=== PATIENT | male | born 1970 | race Two or more races ===

== ENCOUNTER 2018-09-29 10:25 | Observation (INO) | payer MEDICAID ==
[~2018-09-29] VITALS: Ht 157.5 cm; Wt 54.5 kg
[2018-09-29 11:00] LABS: BASOPHILS 0.1 % (0-2); EOSINOPHILS 0.3 % (0-7); HEMATOCRIT 44.6 % (42.0-54.0); HEMOGLOBIN 15.1 g/dL (13.5-17.5); IMMATURE GRANULOCYTES 0.6 % (0-5); MCH 31.1 pg (26.0-34.0); MCHC 33.9 g/dL (31.0-37.0); MCV 91.8 fL (80.0-100.0); MONOCYTES 4.2 % (2-11); NEUTROPHILS 83.8 % (40-80); PLATELET COUNT 258 10x3/uL (130-400); RBC 4.86 10x6/uL (4.20-6.10); RDW 12.6 % (11.5-14.5); WBC 15.5 10x3/uL (4.8-10.8)
[2018-09-29 11:07] LABS: APPEARANCE CLEAR (CLEAR); BACTERIA FEW /hpf (NONE SEEN); BILIRUBIN NEGATIVE (NEGATIVE); COLOR YELLOW (YELLOW); EPITHELIAL CELLS RARE /hpf (0-5); GLUCOSE 50 mg/dL (NEGATIVE); KETONE NEGATIVE (NEGATIVE); NITRITE NEGATIVE (NEGATIVE); PROTEIN NEGATIVE (NEGATIVE); UROBILINOGEN NORMAL (NORMAL); WHITE CELLS - URINE OCC /hpf (0-5)
--- NOTE | 2018-09-29 11:14 | NUR ---
PT OUT OF THE ED AT THIS TIME, TRANSPORTED TO MEDICAL IMAGING VIA STRETCHER.
[2018-09-29 12:30] LABS: ALBUMIN 4.3 g/dL (3.4-5.0); ANION GAP 13.9 mmol/L (8-16); BILIRUBIN - TOTAL 0.34 mg/dL (0.2-1.3); CALCIUM 9.2 mg/dL (8.5-10.1); CARBON DIOXIDE 26.2 mmol/L (21.0-32.0); CREATININE - SERUM 1.2 mg/dL (0.6-1.3); POTASSIUM - SERUM 4.1 mmol/L (3.5-5.1); PROTEIN - SERUM 8.3 g/dL (6.4-8.2)
--- NOTE | 2018-09-29 12:30 | NUR ---
PT OBSERVED LYING IN BED, RESPIRATIONS EVEN AND UNLABORED. NO APPARENT SIGNS OF DISTRESS. PT ALERT, ORIENTED, RATES PAIN 1/10. FAMILY MEMBER AT THE BEDSIDE, CALL LIGHT IN REACH, WILL CONTINUE TO MONITOR.
--- NOTE | 2018-09-29 14:03 | NUR ---
PT AWARE HE IS BEING ADMITTED TO [facility], AWAITING BED ASSIGNMENT. PT ALSO AWARE HE WILL BE HAVING PROCEDURE LATER TODAY. PT HAS BEEN NPO SINCE ARRIVAL TO ED AND IS AWARE THAT HE IS TO REMAIN NPO UNTIL TOLD OTHERWISE. PT STATES THAT HIS PAIN IS CURRENTLY 2/10. PT LYING IN BED, RESPIRATIONS EVEN AND UNLABORED. CALL LIGHT IN REACH, WILL CONTINUE TO MONITOR.
[2018-09-29 15:16] VITALS: BP 117/74
--- NOTE | 2018-09-29 15:17 | NUR ---
SURGICAL CONSENT FORMS SIGNED. PT LYING IN BED, DENIES ANY NEEDS. PT CURRENTLY RATES PAIN 3/10, PT OFFERED ADDITIONAL PAIN MEDICAION AT THIS TIME AND DECLINED. CALL LIGHT IN REACH, LIGHTS DIMMED FOR COMFORT. WILL CONTINUE TO MONITOR.
[2018-09-29 17:25] VITALS: BP 111/71
[2018-09-29 17:30] VITALS: Ht 157.5 cm; Wt 54.5 kg
--- NOTE | 2018-09-30 08:41 | OP ---
PATIENT NAME: SURY ADAMS MEDICAL RECORD: [id number] :66 LOCATION:[facility] ADMISSION DATE:09/29/18 SURGEON: CHEPE ROBERTSON MD DATE OF OPERATION: 09/29/2018 SURGEON: Chepe Robertson MD ANESTHESIA: General anesthesia by Bud Damon CRNA. DIAGNOSIS: A 7-mm x 10-mm mid ureteral stone in the left ureter. FINDINGS: Radiodense stone. PROCEDURES: Cystoscopy, left retrograde pyelogram, left ureteroscopy, left ureteral stent insertion 6-Ghanaian x 24 cm with string attached. BLOOD LOSS: None. CLINICAL HISTORY: This is a 48-year-old male, who speaks mainly Afghan. He has limited Swedish. He has a history of kidney stones. He had acute left flank pain at about 3 a.m. today. He came to the Emergency Room and a CT scan showed stone lodged in the mid ureter with proximal hydronephrosis. There is also a 2-mm nonobstructing left renal stone. He was admitted for pain control, and he comes now to have the stone removed by ureteroscopy. He is not allergic to any medications, and he was given Ancef ironing worker to the OR. DESCRIPTION OF PROCEDURE: The patient was given induction of general anesthesia. He was placed in the dorsal lithotomy position. Cystoscopy was performed using a 21-Ghanaian cystoscope with 30-degree lens. No penile strictures were seen. The prostate is nonobstructive, although he does have a somewhat tall bladder neck. On fluoroscopy, we could see the stone as a radiodensity. Going into the bladder, no bladder tumors were seen. He has single ureteral orifices bilaterally. An open-ended ureteral catheter was placed into the left ureteral orifice and diluted contrast was injected for a retrograde pyelogram. This showed the radiodensity in the ureter as the ureteral stone of interest. Through the lumen of the open-ended ureteral catheter, we had with some difficulty passed a Sensor wire beyond the stone. The stone created quite an obstruction. We then dilated the ureteral orifice with a 21-Ghanaian x 4-cm ureteral dilation balloon. The balloon was inflated with 14 atmospheres of pressure for a few seconds and the balloon was deflated. The ureteral balloon dilator and the cystoscope were removed, leaving the wire in place. We then went up with a semi-rigid ureteroscope. We came up to the stone and found it. Attempts to place a basket around it and pull it out were unsuccessful as the stone was completely trapped by ureteral edema. This basket did go around the stone, but we could not get the stone to budge. I was afraid of putting too much pressure as there is a risk of tearing the ureter in the mid ureteral level. We then resorted back to placing the balloon dilator and I dilated the ureter distal to the stone to 14 atmospheres in an overlapping fashion so that the entire length of the ureter distal to the stone was dilated. Even so I could not get the stone to budge out of the ureteral edema. I did contemplate using the holmium laser to break the stone up, but as the ureteral area was already suffering some trauma from the basketing attempts, I did not wish to injure the ureter any further using the laser. Therefore, we backloaded the wire onto the stent and over the wire, we inserted the 6-Ghanaian x 24-cm ureteral stent. Once the stent was in correct position, the wire was entirely OPERATIVE REPORT [id number] SURY ADAMS. The distal end of the stent was pushed into the bladder using the pusher. The bladder was emptied through the cystoscope sheath and then the cystoscope was removed. The string on the distal end of the stent is maintained. It hangs out of the urethra. It was tied to itself in a knot and cut shorter. I will arrange for the patient to have outpatient lithotripsy. TRANSINT:[id number] Voice Confirmation ID: [id number] DOCUMENT ID: [id number] CHEPE ROBERTSON MD at 0841 CC: [id number] DICTATION DATE: 09/29/18 1846 PUBLIC RELATIONS COUNSELOR: 09/29/[id number] DIS IN 09/29/18 [facility] [address] [place] [address]
== END 2018-09-29 21:14 | disposition home or self-care (01) ==
LOC: D.ER 10:25 → D.EDHOLD 13:02 → OBSVTIME 13:03 → D.EDHOLD 21:14
PROVIDERS: Emergency Medicine; ADMIT Urology; ATTEND Urology
DX: N13.2 Hydronephrosis with renal and ureteral calculous obstruction (principal); Z72.0 Tobacco use

== ENCOUNTER 2018-10-09 14:37 | Inpatient (IN) | payer MEDICAID ==
[2018-10-09] VITALS (12 sets, daily range): BP systolic 80–112; BP diastolic 47–73; BMI 21.6
[~2018-10-09] VITALS: Ht 157.5 cm; Wt 62.6 kg
--- NOTE | ~2018-10-09 | EC ---
PATIENT:SURY ADAMS DATE OF SERVICE: 10/09/18 SEX: M MEDICAL RECORD: [id number] DATE OF : [birth year] LOCATION:[place] [address] AGE OF PATIENT: 48 ADMISSION DATE: 10/09/18 REFERRING PHYSICIAN: INTERPRETING PHYSICIAN: SHAYY RUBY MD ECHOCARDIOGRAM REPORT ECHO CHARGES 4 ECHO COMPLETE Date: 10/09/18 CLINICAL DIAGNOSIS: ASSESS FOR ENDOCARDITIS ECHOCARDIOGRAPHIC MEASUREMENTS (adult normal given) AC root (d.<3.7cm) 3.3 cm LV Septum d (<1.2 cm> 1.2 cm Valve Excursion 1.6 cm LV Septum (systole) 1.5 cm Left Atria (s.<4.0cm> 4.0 cm LVPW d(<1.2cm) 1.3 cm RV (d.<2.3cm) 3.6 cm LVPW (sytole) 1.5 cm LV diastole(<5.6CM) 4.5 cm MV E-F(>70mm/sec) cm LV systole 2.9 cm LVOT Diameter 1.8 cm MV exc.(>10mm) 1.9 cm Est.ejection fraction (50-75%) % DOPPLER: LVIT cm/sec A 106 cm/sec E 94.0 cm/sec LA cm/sec RVSP 38 mmHg LVOT 119 cm/sec AOP1/2T m/s Asc. Ao 180 cm/sec RVOT 145 cm/sec RA cm/sec PA 198 cm/sec AV Gradient Peak 12.95mmHg AV Mean 7.06 mmHg AV Area 1.8 cm MV Gradient Peak 6.19 mmHg MV Mean 2.78 mmHg MV Area cm COMMENTS: Trade Analyst: Obdulia AGUILAR Manager Control: 1 Dr. Ruby TAPE# PACS Pericardial Effusion N DATE OF SERVICE: FINDINGS: 1. Left ventricular chamber size is within normal limits. Left ventricular systolic function is normal. Overall ejection fraction estimated at 60%. 2. Left atrium is enlarged at 4.0 cm. Right atrium and right ventricular chamber sizes are as well mildly dilated. 3. 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 The remaining valvular structures have normal structure and motion. ECHOCARDIOGRAM REPORT [id number] SUYR ADAMS 4. Doppler interrogation reveals mild mitral regurgitation, mild tricuspid regurgitation, no other valvular insufficiency or stenosis. Pulmonary systolic pressure is estimated at 38 mmHg. 5. No evidence of pericardial effusion or left ventricular thrombus. TRANSINT:[id number] Voice Confirmation ID: [id number] DOCUMENT ID: [id number] SHAYY RUBY MD CC: [id number] DICTATION DATE: 10/11/18850 MOTORCYCLE MECHANIC APPRENTICE: 10/11/18954 ADM IN [facility] [address] [place] [id number]
--- NOTE | ~2018-10-09 | TEE ---
PATIENT:SURY ADAMS MEDICAL RECORD: [id number] LOCATION:[facility] AGE OF PATIENT: 48 ADMISSION DATE: 10/09/18 SEX: M REFERRING PHYSICIAN: INTERPRETING PHYSICIAN: SHAYY RUBY MD TRANSESOPHAGEAL ECHOCARDIOGRAM Date: 10/09/18 ESME CHARGE INDICATIONS: PREMEDICATIONS: PATIENT'S RESPONSE PROCEDURE DOPPLER MEASUREMENTS: LVIT LA PA 198 RA LVOT 119 RVOT 145 Asc. Ao 180 AV Gradient Peak 12.95 AV Mean 7.06 AV Area 1.8 MV Gradient Peak 6.19 MV Mean 2.78 MV Area INTERPRETATION: Doppler: 2-D: COLOR FLOW DOPPLER NORMAL SALINE STUDY: MISCELLANOUS: DIAGNOSIS: PLAN: Lump Inspector:1 Dr. Ruby Dj Instructor: Obdulia AGUILAR COMMENTS: DATE OF SERVICE: 10/11/2018 INDICATIONS: Mitral valve abnormality, possible endocarditis. FINDINGS: 1. Left ventricular chamber size is within normal limits. Left ventricular systolic function is normal. Overall ejection fraction estimated at 60%. 2. Left atrium, right atrium and right ventricular chamber sizes are within normal limits. TRANSESOPHAGEAL ECHOCARDIOGRAM REPORT [id number] SURY ADAMS 3. Valvular structures have normal structure and motion. There is no evidence of endocarditis. There is a prominent papillary muscle and prominent chordae to the mitral valve that was seen on transthoracic echo and mistaken for an endocarditic lesion. The remaining valvular structures have normal structure and motion. 4. Doppler interrogation reveals no significant valvular insufficiency or stenosis. 5. No evidence of pericardial effusion or left ventricular thrombus. OVERALL IMPRESSION: No evidence of endocarditis. Prominent papillary muscle is seen with the mitral valve on transthoracic echo. This was mistaken for endocarditis, but no endocarditis exists. TRANSINT:[id number] Voice Confirmation ID: [id number] DOCUMENT ID: [id number] SHAYY RUBY MD CC: [id number] DICTATION DATE: 10/11/18 1713 HAND HARDENER: 10/12/18 0107 ADM IN [place] [address] [place] [address]
[2018-10-09 15:17] LABS: BASOPHILS 0.1 % (0-2); EOSINOPHILS 0.1 % (0-7); HEMATOCRIT 43.4 % (42.0-54.0); HEMOGLOBIN 14.7 g/dL (13.5-17.5); IMMATURE GRANULOCYTES 0.2 % (0-5); LYMPHOCYTES 6.2 % (15-50); MCH 31.1 pg (26.0-34.0); MCHC 33.9 g/dL (31.0-37.0); MCV 91.8 fL (80.0-100.0); MEAN PLATELET VOLUME 9.7 fL (7.4-10.4); MONOCYTES 4.6 % (2-11); NEUTROPHILS 88.8 % (40-80); PLATELET COUNT 225 10x3/uL (130-400); RBC 4.73 10x6/uL (4.20-6.10); RDW 12.8 % (11.5-14.5); WBC 18.1 10x3/uL (4.8-10.8)
[2018-10-09 15:27] LABS: APPEARANCE TURBID (CLEAR); BILIRUBIN NEGATIVE (NEGATIVE); COLOR RED (YELLOW); GLUCOSE NEGATIVE (NEGATIVE); KETONE MODERATE mg/dL (NEGATIVE); NITRITE NEGATIVE (NEGATIVE); PROTEIN 3+ mg/dL (NEGATIVE); SPECIFIC GRAVITY 1.015 (1.005-1.020); UROBILINOGEN NORMAL (NORMAL)
[2018-10-09 15:28] LABS: RED CELLS - URINE >50 /hpf (0-5)
[2018-10-09 15:37] LABS: ALBUMIN 3.6 g/dL (3.4-5.0); ANION GAP 15.7 mmol/L (8-16); BILIRUBIN - TOTAL 0.73 mg/dL (0.2-1.3); CALCIUM 8.8 mg/dL (8.5-10.1); CARBON DIOXIDE 27.1 mmol/L (21.0-32.0); CREATININE - SERUM 1.7 mg/dL (0.6-1.3); MAGNESIUM - SERUM 1.8 mg/dL (1.8-2.4); POTASSIUM - SERUM 3.8 mmol/L (3.5-5.1); PROTEIN - SERUM 7.7 g/dL (6.4-8.2)
--- NOTE | 2018-10-09 17:39 | NUR ---
ADMISSIONS NOTIFIED OF NEED TO PLACE MONEY IN SAFE, TRANSLATION LIV USED TO MAKE PATIENT AWARE AND HE IS OK WITH THIS, YOKO PARKER RN AND SOFIA GALICIA RN COUNDTED PATIENTS BROWN IN FRONT OF HIM, PLACED HIS WALLET WITH THE MONEY IN IT IN HIS RIGHT HAND AND HE IS AWARE OF PLAN TO LOCK UP. SEE BELONGINGS LIST FOR DEATIL OF COUNT AND TOTAL.
--- NOTE | 2018-10-09 18:39 | NUR ---
CALLED NEED TO TELE. OF THE STAT ECHO.
--- NOTE | 2018-10-09 19:16 | NUR ---
PT IN BED. DOES NOT SPEAK VIETNAMESE, BUT RESPONDS WITH "YEAH" VISITOR AT BEDSIDE. NO ACUTE DISTRESS NOTED AT THIS TIME.
--- NOTE | 2018-10-09 21:00 | NUR ---
INFORMED BY PT FAMILY THAT PT HAS HAD MURMUR SINCE CHILDHOOD. ECHO TEAM YET TO PERFORM ECHO ON PT. PULVERIZER FEEDER CALLED AND ASKED TO CALL ECHO TEAM.
--- NOTE | 2018-10-09 23:13 | NUR ---
ECHO TEAM IN ROOM
--- NOTE | 2018-10-09 23:42 | NUR ---
INFORMED BY ECHO THAT PT HAS MITRAL VALVE VEGETATION NAD EF OF [address]US[address] RESULTS CALLED TO DR VILLAGRAN CARDIO CONSULT ORDERED AND PUT IN
[2018-10-10] VITALS (24 sets, daily range): BP systolic 75–116; BP diastolic 40–72
--- NOTE | 2018-10-10 01:00 | NUR ---
PT IN BED RESTING WITH EYES CLOSED. EVEN AND UNLABORED RESPIRATIONS NOTED AT THIS TIME.
--- NOTE | 2018-10-10 03:09 | NUR ---
PROVIDED WARM WATER PER REQUEST. PT DENIES FURTHER NEEDS AT THIS TIME.
[2018-10-10 03:15] LABS: ANION GAP 13.6 mmol/L (8-16); CALCIUM 7.4 mg/dL (8.5-10.1); CREATININE - SERUM 1.3 mg/dL (0.6-1.3); POTASSIUM - SERUM 3.6 mmol/L (3.5-5.1)
[2018-10-10 03:18] LABS: BASOPHILS 0.1 % (0-2); EOSINOPHILS 0 % (0-7); HEMATOCRIT 35.8 % (42.0-54.0); HEMOGLOBIN 11.8 g/dL (13.5-17.5); IMMATURE GRANULOCYTES 0.2 % (0-5); LYMPHOCYTES 9.8 % (15-50); MCH 30.1 pg (26.0-34.0); MCV 91.3 fL (80.0-100.0); MEAN PLATELET VOLUME 9.9 fL (7.4-10.4); NEUTROPHILS 82.9 % (40-80); RBC 3.92 10x6/uL (4.20-6.10); RDW 13.1 % (11.5-14.5)
[2018-10-10 03:24] LABS: PLATELET COUNT 161 10x3/uL (130-400); WBC 12.3 10x3/uL (4.8-10.8)
--- NOTE | 2018-10-10 03:43 | NUR ---
PT RESTING IN BED EYES CLOSED, VS AT THIS TIME, AGREE WITH PREVIOUS ASSESSMENT.
--- NOTE | 2018-10-10 05:35 | NUR ---
PT IN BED EYES CLOSED RESTING QUIETLY. EVEN AND UNLABORED RESPIRATIONS NOTED AT THIS TIME
--- NOTE | 2018-10-10 08:32 | NUR ---
NOTED ROLANDO BLOOD IN URINE, SANDOR HELD THIS AM.
--- NOTE | 2018-10-10 15:00 | NUR ---
NO CHANGES NOTED AT PRESENT
--- NOTE | 2018-10-10 19:15 | NUR ---
RECEIEVED CARE OF PT, ASSESSMENT PER FLOWSHEET. PT ABLE TO REPOSITION SELF, BED LOW, CALL LIGHT IN REACH, HR SR ON CM. WILL MONITOR.
--- NOTE | 2018-10-10 19:19 | NUR ---
CALL LIGHT ANSWERED. PT ASKED FOR HOT WATER. RATES PAIN 9/10 ALL OVER. MORPHINE 2MG IV GIVEN PER ORDERS.
--- NOTE | 2018-10-10 21:15 | NUR ---
NO VISITORS PRESENT AT THIS TIME, COKE PROVIDED PER REQUEST, ABLE TO REPOSITION SELF. VSS
--- NOTE | 2018-10-10 23:30 | NUR ---
REASSESSMENT PER FLOWSHEET, NO ACUTE CHANGES NOTED, VSS.
--- NOTE | 2018-10-10 23:41 | NUR ---
PT C/O PAIN, PRN MORPHINE 2 MG ADMINISTERED VIA SIVP PER MD ORDER. WILL MONITOR FOR DESIRED EFFECT.
[2018-10-11] VITALS (24 sets, daily range): BP systolic 89–141; BP diastolic 57–95
--- NOTE | 2018-10-11 01:50 | NUR ---
PT RESTING IN BED WITH EYES CLOSED, VSS, CONT POC
--- NOTE | 2018-10-11 03:15 | NUR ---
REASSESSMENT PER FLOWSHEET, HOT WATER PROVIDED PER REQUEST, VSS.
--- NOTE | 2018-10-11 04:54 | NUR ---
PT C/O SUPRAPUBIC-LOWER ABDOMINAL PAIN, PRN MORPHINE 2MG ADMINISTERED PER MD ORDER VIA SIVP. WILL MONITOR.
--- NOTE | 2018-10-11 05:07 | NUR ---
AM LABS REVIEWED, NOTHING TO TREAT PER ELECTROLYTE PROTOCOL.
--- NOTE | 2018-10-11 11:00 | NUR ---
NO CHANGE NOTED
[2018-10-11 12:12] LABS: BASOPHILS 0.1 % (0-2); EOSINOPHILS 0 % (0-7); HEMATOCRIT 37.1 % (42.0-54.0); HEMOGLOBIN 12.6 g/dL (13.5-17.5); IMMATURE GRANULOCYTES 0.2 % (0-5); LYMPHOCYTES 13.5 % (15-50); MCH 30.5 pg (26.0-34.0); MCV 89.8 fL (80.0-100.0); MONOCYTES 8.9 % (2-11); NEUTROPHILS 77.3 % (40-80); PLATELET COUNT 188 10x3/uL (130-400); RBC 4.13 10x6/uL (4.20-6.10)
[2018-10-11 12:16] LABS: WBC 8.4 10x3/uL (4.8-10.8)
--- NOTE | 2018-10-11 12:49 | NUR ---
ESME COMPLETED, FAMILY PRESENT AND INFORMED OF OUTCOME AND FINDINGS.
--- NOTE | 2018-10-11 15:00 | NUR ---
NO CAHNGE NOTED
--- NOTE | 2018-10-11 18:00 | NUR ---
NOTIFIED [facility] OF PLANNED OR PROCDDURE TOMORROW PER DR. ROBERTSON'S NOTES
--- NOTE | 2018-10-11 19:02 | NUR ---
REPORT RECEIVED, CARE ASSUMED. INITIAL ASSESSMENT COMPLETED, SEE FLOWSHEET FOR DETAILS. PT IS RESTING IN BED AT THIS TIME. NO NEEDS VOICED. PT TEMP IS 103.0, PRN TYLENOL GIVEN. NO SIGNS OF ACUTE DISTRESS. WILL CONTINUE TO MONITOR.
--- NOTE | 2018-10-11 21:02 | NUR ---
PT IS RESTING IN BED AT THIS TIME. PT VOICES NO NEEDS. NO SIGNS OF ACUTE DISTRESS. WILL CONTINUE TO MONITOR.
--- NOTE | 2018-10-11 23:03 | NUR ---
REASSESSMENT COMPLETED, SEE FLOWSHEET FOR DETAILS. PT IS LAYING IN BED AT THIS TIME WITH EYES CLOSED. NO NEEDS VOICED. NO SIGNS OF ACUTE DISTRESS. WILL CONTINUE TO MONITOR.
[2018-10-12] VITALS (23 sets, daily range): BP systolic 90–136; BP diastolic 63–92; Ht 157.5 cm; Wt 62.6 kg
--- NOTE | 2018-10-12 01:03 | NUR ---
PT IS RESTING IN BED WITH EYES CLOSED. NO NEEDS VOICED. NO SIGNS OF ACUTE DISTRESS. WILL CONTINUE TO MONITOR.
--- NOTE | 2018-10-12 03:04 | NUR ---
REASSESSMENT COMPLETED, SEE FLOWSHEET FOR DETAILS. PT IS RESTING IN BED WITH EYES CLOSED. NO NEEDS VOICED. NO SIGNS OF ACUTE DISTRESS. WILL CONTINUE TO MONITOR.
[2018-10-12 04:25] LABS: BASOPHILS 0.2 % (0-2); EOSINOPHILS 0 % (0-7); HEMATOCRIT 32.7 % (42.0-54.0); HEMOGLOBIN 11.1 g/dL (13.5-17.5); IMMATURE GRANULOCYTES 0.7 % (0-5); LYMPHOCYTES 16.2 % (15-50); MCH 29.8 pg (26.0-34.0); MCHC 33.9 g/dL (31.0-37.0); MCV 87.9 fL (80.0-100.0); MEAN PLATELET VOLUME 10.1 fL (7.4-10.4); MONOCYTES 15.7 % (2-11); NEUTROPHILS 67.2 % (40-80); PLATELET COUNT 175 10x3/uL (130-400); RBC 3.72 10x6/uL (4.20-6.10); RDW 12.7 % (11.5-14.5)
[2018-10-12 04:49] LABS: ALBUMIN 2.3 g/dL (3.4-5.0); ALKALINE PHOSPHATASE 60 U/L (46-116); ALT (SGPT) 34 U/L (10-68); BILIRUBIN - TOTAL 0.31 mg/dL (0.2-1.3); C-REACTIVE PROTEIN 13.8 mg/dL (0.0-0.9); CALCIUM 7.5 mg/dL (8.5-10.1); CARBON DIOXIDE 23.6 mmol/L (21.0-32.0); CHLORIDE - SERUM 101 mmol/L (98-107); CREATININE - SERUM 1.1 mg/dL (0.6-1.3); PROTEIN - SERUM 6.3 g/dL (6.4-8.2); SODIUM 136 mmol/L (136-145); UREA NITROGEN 6 mg/dL (7-18); eGFR NON AFRICAN AMERICAN 75 mL/min (90-120)
[2018-10-12 04:55] LABS: WBC 6.1 10x3/uL (4.8-10.8)
[2018-10-12 04:59] LABS: CALC OSMOLALITY 275 mosm/kg (275-300); GLUCOSE 198 mg/dL (74-106); POTASSIUM - SERUM 2.8 mmol/L (3.5-5.1)
--- NOTE | 2018-10-12 05:04 | NUR ---
PT IS RESTING IN BED WITH EYES CLOSED. NO SIGNS OF ACUTE DISTRESS. WILL CONTINUE TO MONITOR.
--- NOTE | 2018-10-12 07:03 | NUR ---
UP IN BED AWAKE AT THIS TIME. NO ACUTE DISTRESS NOTED. LINENS SATUATED WITH URINE, TOTAL LINEN CHANGE PROVIDED WITH CHLORIHEXIDINE BATH PROVIDED. NO ACUTE DISTRESS NOTED. WILL CONTINUE PLAN OF CARE.
--- NOTE | 2018-10-12 09:30 | NUR ---
NOTED PT HAS TEMP 102.2. PRN TYLENOL ADMIN AT THIS TIME FOR FEVER. WILL CONTINUE PLAN OF CARE.
--- NOTE | 2018-10-12 10:13 | NUR ---
TEMP NOW 100.4.
--- NOTE | 2018-10-12 12:54 | NUR ---
750 ML URINE NOTED TO URINAL AT THIS TIME, BLOODY. NO ACUTE DISTRESS NOTED. PT NPO FOR PROCEDURE. WILL CONTINUE PLAN OF CARE.
--- NOTE | 2018-10-12 14:22 | NUR ---
CONSENTS FOR PROCEDURE, ANESTHESIOLOGY, AND BLOOD PRODUCTS ALL OBTAINED USING CLAIM ANALYST PHONE WITH DR ROBERTSON, TIRE WRAPPER, AND NURSING STAFF IN ROOM TO ANSWER ALL QUESTIONS AND CONCERNS. PT GAVE CONSENT. CLAIM ANALYST'S NAME IS AMARILIS. WILL CONTINUE PLAN OF CARE.
--- NOTE | 2018-10-12 14:45 | NUR ---
LEFT TO OR AT THIS TIME VIA BED ACCOMPANIED BY HOSPITAL STAFF. NO ACUTE DISTRESS NOTED. PT DENIES ANY NEEDS OR CONCERNS. VSS.
--- NOTE | 2018-10-12 16:36 | NUR ---
DR HUDSON AND DR ROSS BOTH NOTIFIED OF LOW TEMPERATURES AND THAT WHEN BEAR HUGGER IS REMOVED TEMPERATURE DROPS AGAIN. NO NEW ORDERS RECIEVED.
--- NOTE | 2018-10-12 16:45 | NUR ---
REPORT RECIEVED FROM RECOVERY AT THIS TIME. WAITING TO RECIEVE PT.
--- NOTE | 2018-10-12 16:48 | NUR ---
PER DR ROBERTSON, PT OKAY TO TRANSFER TO FLOOR.
--- NOTE | 2018-10-12 17:00 | NUR ---
RETURNED TO UNIT AT THIS TIME VIA BED ACCOMPANITED BY HOSPITAL STAFF. PTS FAMILY AT BEDSIDE. UPDATES PROVIDED. NOTED PT HAD LT URETER STENT PLACED, STRING IS VISIBLE OUTSIDE OF PENILE MEATUS. PT INSTRUCTED TO NOT PULL AT STRING, THIS TEACHING WAS PROVIDED TO PT AND PTS FAMILY, PT AND PTS FAMILY STATED UNDERSTANDING. ALSO PER DR ROBERTSON, PT WILL NEED TO FOLLOWUP EITHER THURSDAY OR NEXT WEEK IF DISCHARGED ALREADY. NO ACUTE DISTRESS NOTED. WILL CONTINUE PLAN OF CARE.
--- NOTE | 2018-10-12 17:13 | NUR ---
PT LEFT UNIT TO GO TO CT AT THIS TIME VIA BED ACCOMPANIED BY HOSPITAL STAFF. VSS.
--- NOTE | 2018-10-12 17:20 | NUR ---
RETURNED FROM CT AT THIS TIME.
--- NOTE | 2018-10-12 17:34 | NUR ---
IV TO RT AC PULLED OUT DURING TRANSFER FROM OR BACK TO REGULAR ROOM PER REPORT. NEW IV PLACED TO RT FOREARM, 20G, FLUSHES WELL. NO ACUTE DISTRESS NOTED. WILL CONTINUE PLAN OF CARE.
[2018-10-13] VITALS: BP 108/77
--- NOTE | 2018-10-13 00:57 | NUR ---
PATIENT C/O OF L CHEST PAIN RADIATING INTO BACK. SPOKE WITH PATIENT VIA TRANSLATION PHONE. MORPHINE GIVEN PER ORDER FOR PAIN.
--- NOTE | 2018-10-13 01:10 | NUR ---
SPOKE WITH COOPER ABOUT CHEST PAIN, NEW ORDERS RECEIVED. CM WITH SR NOTED IN THE [address] ELEVATION NOTED. WILL CONTINUE TO MONITOR PATIENT.
--- NOTE | 2018-10-13 02:15 | NUR ---
IN TO CHECK ON PATIENT, PAIN IS BETTER. CALL LIGHT WIHTIN REACH, BED IN LOW POSITION. WILL CONTINUE TO MONITOR PT.
[2018-10-13 02:54] LABS: BASOPHILS 0 % (0-2); EOSINOPHILS 0 % (0-7); HEMATOCRIT 31.5 % (42.0-54.0); HEMOGLOBIN 10.8 g/dL (13.5-17.5); IMMATURE GRANULOCYTES 1.3 % (0-5); LYMPHOCYTES 16.4 % (15-50); MCH 29.8 pg (26.0-34.0); MCHC 34.3 g/dL (31.0-37.0); MCV 86.8 fL (80.0-100.0); MEAN PLATELET VOLUME 10.1 fL (7.4-10.4); MONOCYTES 14.4 % (2-11); NEUTROPHILS 67.9 % (40-80); RBC 3.63 10x6/uL (4.20-6.10); RDW 12.6 % (11.5-14.5); WBC 5.4 10x3/uL (4.8-10.8)
[2018-10-13 02:56] LABS: PLATELET COUNT 214 10x3/uL (130-400)
[2018-10-13 03:00] VITALS: BP 111/77
[2018-10-13 03:14] LABS: ALBUMIN 2.3 g/dL (3.4-5.0); ALKALINE PHOSPHATASE 65 U/L (46-116); ALT (SGPT) 42 U/L (10-68); BILIRUBIN - TOTAL 0.33 mg/dL (0.2-1.3); C-REACTIVE PROTEIN 14.8 mg/dL (0.0-0.9); CALC OSMOLALITY 276 mosm/kg (275-300); CALCIUM 7.6 mg/dL (8.5-10.1); CARBON DIOXIDE 25.3 mmol/L (21.0-32.0); CHLORIDE - SERUM 103 mmol/L (98-107); CKMB 0.6 U/L (0.0-3.6); CREATINE KINASE 50 UL (21-232); CREATININE - SERUM 0.9 mg/dL (0.6-1.3); GLUCOSE 141 mg/dL (74-106); PROTEIN - SERUM 6.5 g/dL (6.4-8.2); SODIUM 138 mmol/L (136-145); TROPONIN-I < 0.017 ng/mL (0.000-0.060); UREA NITROGEN 10 mg/dL (7-18); eGFR NON AFRICAN AMERICAN > 90 mL/min (90-120)
[2018-10-13 07:00] VITALS: BP 116/82
[2018-10-13 08:09] LABS: ALBUMIN 2.4 g/dL (3.4-5.0); ALKALINE PHOSPHATASE 62 U/L (46-116); ALT (SGPT) 45 U/L (10-68); BILIRUBIN - TOTAL 0.29 mg/dL (0.2-1.3); C-REACTIVE PROTEIN 14.2 mg/dL (0.0-0.9); CALC OSMOLALITY 278 mosm/kg (275-300); CALCIUM 7.9 mg/dL (8.5-10.1); CARBON DIOXIDE 23.9 mmol/L (21.0-32.0); CHLORIDE - SERUM 105 mmol/L (98-107); CKMB 1.1 U/L (0.0-3.6); CREATINE KINASE 48 UL (21-232); GLUCOSE 143 mg/dL (74-106); POTASSIUM - SERUM 3.9 mmol/L (3.5-5.1); PROTEIN - SERUM 6.4 g/dL (6.4-8.2); SODIUM 139 mmol/L (136-145); TROPONIN-I < 0.017 ng/mL (0.000-0.060); UREA NITROGEN 11 mg/dL (7-18); eGFR NON AFRICAN AMERICAN 84 mL/min (90-120)
--- NOTE | 2018-10-13 08:10 | NUR ---
CONTINENT BOWEL MOVEMENT NOTED AT THIS TIME VIA BEDSIDE TOILET. PT PROVIDED OWN RYANNE CARE. DENIES ANY NEES. CALL LIGHT IN REACH. WILL CONTINUE PLAN OF CARE.
--- NOTE | 2018-10-13 08:56 | OP ---
PATIENT NAME: SURY ADAMS MEDICAL RECORD: [id number] :66 LOCATION:[facility] D.2315 ADMISSION DATE:10/09/18 SURGEON: DIPESH ROBERTSON MD DATE OF OPERATION: 10/12/2018 SURGEON: Dipesh Robertson MD ANESTHESIA: General anesthesia by Delaney Juárez CRNA. DIAGNOSES: History of left ureteral stone, sepsis due to urinary tract infection with Morganella morganii. PROCEDURES: Cystoscopy, left ureteroscopy, left ureteral stent exchange. FINDINGS: No radiodense stones seen. On ureteroscopy numerous ureteral and bladder blood clots were seen. A tiny stone fragment entrapped in the ureteral blood clot was retrieved. SPECIMEN: Old left ureteral stent, ureteral stone about 2 mm in size. BLOOD LOSS: None. CLINICAL HISTORY: This is a 48-year-old male, who speaks primarily Mauritian. He speaks very little Bahraini. He works at a [employer] restaurant. He has a history of kidney stones. About 2 weeks ago, he presented with acute left flank pain and at that time, a 7 x 10 mm left ureteral stone was seen. I could not remove the stone with ureteroscopy as it was firmly entrapped in the ureter. I placed a left ureteral stent with the intention of bring him back for lithotripsy. However, due to the language barrier, this was very difficult to set up. In the meantime, he came back to the Emergency Room with high fevers, elevated white count, and sepsis. His urine cultures grew Morganella morganii, which is sensitive to Bactrim and fluoroquinolones. He has been on IV antibiotics in the intensive care unit. He continues to complain of left flank pain. He also has old gross hematuria. Today, his white count is normal and I am going to proceed with left ureteroscopy to remove the stone. I also have him consented to use holmium laser to break the stone up necessary. Since he is already on multiple IV antibiotics in the intensive care unit, we did not give him any further IV antibiotics in the OR. DESCRIPTION OF PROCEDURE: The patient was given induction of general anesthesia. He was then placed into the lithotomy position and prepped and draped. Under fluoroscopy, I could see what I thought might be a ureteral stone which was radiodense in the left L3 vertebral transverse process level. I pulled down his old ureteral stent which still has a string attached to it. Through the lumen of the stent, I placed a Sensor wire up to the renal pelvis. The old stent was then removed entirely and sent to pathology for identification. Over the ureteral wire, we placed a ureteral dilation balloon 21-Armenian x 4 cm. I dilated the entire ureter distal to the L3 with overlapping balloon dilation, so that the entire distal ureter was dilated to 21-Armenian with 14 atmospheres. Once this was done, we switched to the rigid ureteroscope. It should be noted that towards the end of the dilation, we could no longer see this radiodensity. I visualized with the rigid ureteroscope the entire ureter from the renal pelvis all the way down to the UV junction. There were numerous clots in the ureter. Using a 0-tip 4 wire basket, I removed all of these clots. At the end of the procedure, we examined all of these clots and we found a very OPERATIVE REPORT [id number] SURY ADAMS VAN tiny 2 mm speck of stone entrapped in one of the clots. This will be sent for stone analysis. Once the ureter was entirely free of clot, I examined the ureter again with the ureteroscope all the way from the renal pelvis down to the UV junction and no stone was seen. He seems to have passed his ureteral stone. The alternative is somehow ureteroscopy irrigation may have pushed the stone up into the kidney and I will obtain a CT scan of the kidney later today to verify if this kidney is stone free. I then placed the cystoscope back into the bladder, and using an Teburu evacuator, I removed all of the old blood clot that had accumulated in the bladder. All of these blood clots were examined at the end of the case to look for more stone material. No further stone material was found. No bladder tumors were seen. Through the scope, we inserted a 6-Armenian x 22 cm left ureteral stent. The string on the distal end of the stent is maintained. Once the stent was in correct position, the wire was withdrawn entirely. The bladder was emptied through the cystoscope and the scope was removed. The string hangs out of the urethra. It was tied to itself in a knot and cut shorter. I decided not to leave any Cox catheter in as the fever foreign material that is in his urinary system the quicker his UTI will clear. TRANSINT:[id number] Voice Confirmation ID: [id number] DOCUMENT ID: [id number] DIPESH ROBERTSON MD at 0856 CC: [id number] DICTATION DATE: 10/12/18 1637 CASTING MACHINE SET UP OPERATOR: 10/12/18 1855 ADM IN [place] [id number] [place] [address]
--- NOTE | 2018-10-13 10:09 | NUR ---
RESTING IN BED AT THIS TIME, RESPIRATIONS STEADY AND UNLABORED. AWAKENS EASILY WHEN SPOKEN TO. NO ACUTE DISTRESS NOTED. WILL CONTINUE PLAN OF CARE.
[2018-10-13 11:00] VITALS: BP 108/75
--- NOTE | 2018-10-13 12:25 | NUR ---
UP IN BED WATCHING TV AT THIS TIME. DENIES ANY NEEDS. NO ACUTE DISTRESS NOTED. CALL LIGHT IN REACH. WILL CONTINUE PLAN OF CARE.
[2018-10-13 13:34] LABS: CREATINE KINASE 50 UL (21-232); TROPONIN-I < 0.017 ng/mL (0.000-0.060)
--- NOTE | 2018-10-13 14:07 | NUR ---
UP IN BED AWAKE AT THIS TIME. DENIES ANY NEEDS. CALL LIGHT IN REACH. PT ABLE TO NOTIFY STAFF OF NEEDS. REPOSITIONS SELF INDEPENDENTLY. WILL CONTINUE PLAN OF CARE.
[2018-10-13 15:00] VITALS: BP 114/80
--- NOTE | 2018-10-13 15:30 | NUR ---
REPORT CALLED TO RECIEVING NURSE, WILL TRANSFER PT SHORTLY.
--- NOTE | 2018-10-13 15:30 | MORECARE ---
CASE MANAGEMENT DISCHARGE SUMMARY PATIENT: SURY OLIVAREZ VAN UNIT: [id number] ADM DATE: 10/09/18 AGE: 48 : [birth year] SEX: M ROOM/BED: D.2315 AUTHOR: MILES GUADALUPE PHYSICIAN: REFERRING PHYSICIAN: TIM VILLAGRAN MD DATE OF SERVICE: 10/13/18 Discharge Plan Patient Name: SURY [facility]IVARE[facility] [facility] 1970 Planned Disposition: Home Anticipated Discharge Date: Discharge Date: Expected LOS: Initial Reviewer: [email or web address] Initial Review Date: 10/12/2018 Generated: 10/13/18 4:30 pm DCPIA - Discharge Planning Initial Assessment Updated by [email or web address]: Faviola Thompson on 10/13/18 3:28 pm * Is the patient Alert and Oriented? Yes * PCP No PCP * Pharmacy doesn't know name of pharmacy * Preadmission Environment Home with Family * ADLs Independent * Equipment None * List name and contact numbers for known caregivers / representatives who currently or will assist patient after discharge: Eran Olivarez - Brother [phone] * Verbal permission to speak to the caregivers and representatives has been obtained from the patient. Yes * Community resources currently utilized None * Additional services required to return to the preadmission environment? No * Can the patient safely return to the preadmission environment? Yes * Has this patient been hospitalized within the prior 30 days at any hospital? No Patient Name: SURY OLIVAREZ Page [id number] at 1530 All edits/amendments must be made on the electronic document DICTATION DATE: 10/13/18 1529 VIRTUAL RECRUITER: YORDY 10/13/18 1529 RPT#: [id number] DC DATE: STATUS: ADM IN [facility] [address] [place] [address] END OF REPORT
--- NOTE | 2018-10-13 15:40 | MORECARE ---
CASE MANAGEMENT DISCHARGE SUMMARY PATIENT: SURY OLIVAREZ VAN UNIT: [id number] ADM DATE: 10/09/18 AGE: 48 : 66 SEX: M ROOM/BED: D.2315 AUTHOR: COLLINS,DOC PHYSICIAN: REFERRING PHYSICIAN: TIM VILLAGRAN MD DATE OF SERVICE: 10/13/18 Discharge Plan Patient Name: SURY OLIVAREZ Facility: [facility]:[place] : 1970 Planned Disposition: Home Anticipated Discharge Date: Discharge Date: Expected LOS: Initial Reviewer: [email or web address] Initial Review Date: 10/12/2018 Generated: 10/13/18 4:39 pm Comments DCP- Discharge Planning Updated by [id number]: Faviola Thompson on 10/13/18 2:[address] Late Entry 10/12/18 @ 1630 Patient Name: SURY OLIVAREZ Admission Status: ER Accout number: [id number] Admission Date: 10-09-2018 : 1970 Admission Diagnosis:SEPSIS, UNSPECIFIED ORGANISM Attending: TIM VILLAGRAN Current LOS: 4 Anticipated DC Date: Planned Disposition: Home Primary Insurance: [place] [employer] [facility] Discharge Planning Comments: CM met with patient at bedside. Patient speaks little Sami. Patient states he lives at home with Brother Eran [phone] and family. Patient plans to return upon discharge. Denies any discharge needs. CM will continue to follow and assist as needed with discharge planning / needs. Addictions Counselor Assistant: Faviola Thompson DCPIA - Discharge Planning Initial Assessment Updated by [id number]: Faviola Thompson on 10/13/18 3:28 pm * Is the patient Alert and Oriented? Yes * PCP No PCP * Pharmacy doesn't know name of pharmacy * Preadmission Environment Home with Family * ADLs Independent * Equipment None * List name and contact numbers for known caregivers / representatives who currently or will assist patient after discharge: Eran Olivarez - Brother- [phone] * Verbal permission to speak to the caregivers and representatives has been obtained from the patient. Yes * Community resources currently utilized None * Additional services required to return to the preadmission environment? No * Can the patient safely return to the preadmission environment? Yes * Has this patient been hospitalized within the prior 30 days at any hospital? No Last DP export: 10/13/18 2:30 pm Patient Name: SURY OLIVAREZ Page [id number] at 1540 All edits/amendments must be made on the electronic document DICTATION DATE: 10/13/181538 WINDOW ASSEMBLER: YORDY 10/13/181538 RPT#: [id number] DC DATE: STATUS: ADM IN [facility] [address] [place] [address] END OF REPORT
--- NOTE | 2018-10-13 15:41 | NUR ---
TRANSFERRED TO 2223 AT THIS TIME. NO ACUTE DISTRESS NOTED. PT TRANSFERRED TO ROOM WITH ALL PERSONAL ITEMS VIA WHEELCHAIR ACCOMPNIED BY HOSPITAL STAFF. PTS EMERGENCY CONTACY, KIKO, NOTIFIED OF THIS TRANSFER. BOTTLE BOOTH ATTENDANT PHONE WENT WITH PT TO ROOM 2223. NO ACUTE DISTRESS NOTED. NO FURTHER ACTIONS.
--- NOTE | 2018-10-13 18:07 | NUR ---
LATE ENTRY 1530. PT ADAMS FROM ICU VIA BED BY FLOOR SWEEPER. NO S/S OF ACUTE DISTRESS. CL IN PLACE. 1800PT CO OF PAIN. MORPHINE GIVEN PER MD ORDER. NO S/S OF ACUTE DISTRESS. CL IN PLACE. EDUCATIONAL ADVISER PHONE ON BEDSIDE TABLE.
[2018-10-14 00:30] VITALS: BP 100/64
[2018-10-14 05:00] VITALS: BP 111/62
[2018-10-14 06:45] LABS: BASOPHILS 0.2 % (0-2); HEMATOCRIT 30.7 % (42.0-54.0); HEMOGLOBIN 10.4 g/dL (13.5-17.5); IMMATURE GRANULOCYTES 3.5 % (0-5); LYMPHOCYTES 17.9 % (15-50); MCH 29.6 pg (26.0-34.0); MCHC 33.9 g/dL (31.0-37.0); MCV 87.5 fL (80.0-100.0); MONOCYTES 13.4 % (2-11); PLATELET COUNT 319 10x3/uL (130-400); RBC 3.51 10x6/uL (4.20-6.10); RDW 13.2 % (11.5-14.5); WBC 9.9 10x3/uL (4.8-10.8)
[2018-10-14 06:57] LABS: CALC OSMOLALITY 278 mosm/kg (275-300); CALCIUM 7.9 mg/dL (8.5-10.1); CARBON DIOXIDE 23.9 mmol/L (21.0-32.0); CHLORIDE - SERUM 106 mmol/L (98-107); CREATININE - SERUM 0.9 mg/dL (0.6-1.3); GLUCOSE 123 mg/dL (74-106); SODIUM 140 mmol/L (136-145); UREA NITROGEN 10 mg/dL (7-18); eGFR NON AFRICAN AMERICAN > 90 mL/min (90-120)
[2018-10-14 06:59] LABS: POTASSIUM - SERUM 3.1 mmol/L (3.5-5.1)
--- NOTE | 2018-10-14 08:09 | NUR ---
PT IS RESTING IN BED WITH EYES OPEN. RESPIRATIONS ARE EVEN AND UNLABORED. CALL LIGHT IS WITHIN REACH. POST EXCHANGE MANAGER PHONE IS AT BEDSIDE. PT DENIES PRESENCE OF PAIN AND/OR N/V AT THIS TIME. POST EXCHANGE MANAGER LINE USED FOR COMMUNICATION PURPOSES. POST EXCHANGE MANAGER # IS [id number]. BED IS IN THE LOWEST POSITION. CALL LIGHT AND BEDSIDE TABLE ARE WITHIN REACH. SIDERAILS X 2. WILL CONT TO MONITOR.
[2018-10-14 09:19] VITALS: BP 112/73
--- NOTE | 2018-10-14 11:53 | NUR ---
ATTEMPT MADE TO REPLACE K+ ELECTROLYTE PER PROTOCOL. PT STATES THAT HE WOULD LIKE TO WAIT UNTIL 1400 TO TAKE K-DUR TABLETS AND IS RESTING WITH EYES CLOSED. WILL ADDRESS AT A LATER TIME. BED IS IN THE LOWEST POSITION. CALL LIGHT AND BEDSIDE TABLE ARE WITHIN REACH. WILL CONT TO MONITOR.
[2018-10-14 12:27] VITALS: BP 108/68
[2018-10-14 18:11] VITALS: BP 121/76
[2018-10-14 20:23] VITALS: BP 111/73
[2018-10-15 01:34] VITALS: BP 108/67
[2018-10-15 04:04] LABS: BASOPHILS 0.3 % (0-2); EOSINOPHILS 2.2 % (0-7); HEMATOCRIT 31.2 % (42.0-54.0); HEMOGLOBIN 10.6 g/dL (13.5-17.5); IMMATURE GRANULOCYTES 9.7 % (0-5); LYMPHOCYTES 22.6 % (15-50); MCH 29.4 pg (26.0-34.0); MCV 86.7 fL (80.0-100.0); MONOCYTES 12.8 % (2-11); NEUTROPHILS 52.4 % (40-80); RDW 12.9 % (11.5-14.5); WBC 9.9 10x3/uL (4.8-10.8)
[2018-10-15 04:05] LABS: PLATELET COUNT 414 10x3/uL (130-400)
[2018-10-15 04:18] LABS: CALC OSMOLALITY 276 mosm/kg (275-300); CALCIUM 8.3 mg/dL (8.5-10.1); CARBON DIOXIDE 23.1 mmol/L (21.0-32.0); CHLORIDE - SERUM 103 mmol/L (98-107); CREATININE - SERUM 0.9 mg/dL (0.6-1.3); GLUCOSE 148 mg/dL (74-106); POTASSIUM - SERUM 3.1 mmol/L (3.5-5.1); SODIUM 137 mmol/L (136-145); UREA NITROGEN 12 mg/dL (7-18); eGFR NON AFRICAN AMERICAN > 90 mL/min (90-120)
[2018-10-15 04:58] VITALS: BP 135/76
--- NOTE | 2018-10-15 07:48 | NUR ---
DENIES NEEDS AT PRESENT. CALL LIGHT IN REACH
--- NOTE | 2018-10-15 08:00 | NUR ---
ASSESSMENT PER FLOW SHEET. PT IS WITHOUT DISTRESS.CALL LIGHT IN REACH
[2018-10-15 08:52] VITALS: BP 104/61
[2018-10-15] MEDS ORDERED: CIPRO500 MG PO (12:47)
[2018-10-15] MEDS ORDERED: FLORAJEN3 CAPS460 MG PO (12:48)
[2018-10-15] MEDS ORDERED: HYDROCODON-ACE1 EA10 PO (12:48)
--- NOTE | 2018-10-15 13:18 | MORECARE ---
CASE MANAGEMENT DISCHARGE SUMMARY PATIENT: SURY OLIVAREZ UNIT: [id number] ADM DATE: 10/09/18 AGE: 48 : 66 SEX: M ROOM/BED: D.2223 AUTHOR: MILES GUADALUPE PHYSICIAN: REFERRING PHYSICIAN: TIM VILLAGRAN MD DATE OF SERVICE: 10/15/18 Discharge Plan Patient Name: SURY OLIVAREZ Facility: [facility]:[place] : 1970 Planned Disposition: Home Anticipated Discharge Date: Discharge Date: Expected LOS: Initial Reviewer: [email or web address] Initial Review Date: 10/12/2018 Generated: 10/15/18 2:18 pm Comments DCP- Discharge Planning Updated by [id number]: Sun Luna on 10/15/18 12:[address] Patient Name: SURY OLIVAREZ Encounter No: [id number] : 1970 Primary Insurance: [employer] OPTIONS [employer] Anticipated DC Date: Planned Disposition: Home External Planned Provider: : DCP follow-up note: Patient and family in agreement with discharge plan. No changes to plan. Smiling, denies nausea. Wants pain RX, Sana informed. I called Dr. Levy and he states he may discharge. Dr. Levy spoke with patient through the language line and he states he understands he has the lithotripsy scheduled for the at 10:30. Case management will follow and assist as needed. Sun Luna DCP- Discharge Planning Updated by [id number]: Faviola Jay on 10/13/18 2:[address] Late Entry 10/12/18 @ 1630 Patient Name: SURY OLIVAREZ Admission Status: ER Accout number: [id number] Admission Date: 10-09-2018 : 1970 Admission Diagnosis:SEPSIS, UNSPECIFIED ORGANISM Attending: TIM VILLAGRAN Current LOS: 4 Anticipated DC Date: Planned Disposition: Home Primary Insurance: [employer] OPTIONS [facility] Discharge Planning Comments: CM met with patient at bedside. Patient speaks little German. Patient states he lives at home with Brother Eran [phone] and family. Patient plans to return upon discharge. Denies any discharge needs. CM will continue to follow and assist as needed with discharge planning / needs. Manager Transportation: Faviola Thompson DCPIA - Discharge Planning Initial Assessment Updated by [email or web address]: Faviola Thompson on 10/13/18 3:28 pm * Is the patient Alert and Oriented? Yes * PCP No PCP * Pharmacy doesn't know name of pharmacy * Preadmission Environment Home with Family * ADLs Independent * Equipment None * List name and contact numbers for known caregivers / representatives who currently or will assist patient after discharge: Eran Olivarez - Brother- [phone] * Verbal permission to speak to the caregivers and representatives has been obtained from the patient. Yes * Community resources currently utilized None * Additional services required to return to the preadmission environment? No * Can the patient safely return to the preadmission environment? Yes * Has this patient been hospitalized within the prior 30 days at any hospital? No Last DP export: 10/13/18 2:39 pm Patient Name: SURY OLIVAREZ Page [id number] at 1318 All edits/amendments must be made on the electronic document DICTATION DATE: 10/15/18 1318 STUMMEL SELECTOR: YORDY 10/15/18 1318 RPT#: [id number] [place] DATE: STATUS: ADM IN [facility] [address] [place] [address] END OF REPORT
[2018-10-15 13:21] VITALS: BP 108/76
--- NOTE | 2018-10-15 15:19 | NUR ---
IV DCD WITH CATH TIP INTACT. FAMILY TO BE HERE IN ABOUT 15 MIN OR SO TO GO OVER PAPERWORK FOR DC HOME
--- NOTE | 2018-10-15 15:55 | NUR ---
FAMILY HERE. SPEAKS [place] VERY WELL. DISCHARGE INSTRUCTIONS WITH FAMILY THEN THEY EXPLAINED TO PT. THEY STATES UNDERSTANDING RE.. MEDS AND DC HOME,FOLLOW UP APPT.THET DECLINE TO USE PHONE IN ROOM FOR TRANSLATION
--- NOTE | 2018-10-15 16:18 | NUR ---
PAM DELIVERED TO PT FROM [facility]. LEFT UNIT WITH FAMILY VIA WHEELCHAIR FOR TRANSPORT HOME
[2018-10-18 09:08] LABS: CALCULI - CA OXALATE DIHYDRATE 35 % (()); CALCULI - CA OXALATE MONOHYDR 63 % (()); CALCULI - COLOR Tan (()); CALCULI - SIZE 3x3x2 mm (())
== END 2018-10-15 16:19 | disposition home or self-care (01) | DRG 659 ==
LOC: D.ER 14:37 → D.MS 16:32 → D.ICU 16:32 → D.MS 10-13 15:40
PROVIDERS: Family Medicine; Urology; ADMIT Internal Medicine Nephrology; ATTEND Internal Medicine Nephrology
PROC: 0TCB8ZZ Extirpation of Matter from Bladder, Via Natural or Artificial Opening Endoscopic (ICD-10-PCS; 2018-10-12)
PROC: 0TP98DZ Removal of Intraluminal Device from Ureter, Via Natural or Artificial Opening Endoscopic (ICD-10-PCS; principal; 2018-10-12 11:30)
PROC: 0T778DZ Dilation of Left Ureter with Intraluminal Device, Via Natural or Artificial Opening Endoscopic (ICD-10-PCS; 2018-10-12 11:30)
PROC: 0TC78ZZ Extirpation of Matter from Left Ureter, Via Natural or Artificial Opening Endoscopic (ICD-10-PCS; 2018-10-12 11:30)
DX: T83.593A Infection and inflammatory reaction due to other urinary stents, initial encounter (principal); A41.9 Sepsis, unspecified organism; R65.21 Severe sepsis with septic shock; I33.0 Acute and subacute infective endocarditis; N39.0 Urinary tract infection, site not specified; N17.9 Acute kidney failure, unspecified; E87.2 Acidosis; N20.0 Calculus of kidney

== ENCOUNTER 2018-10-21 10:57 | Day surgery (SDC) | payer MEDICAID ==
[~2018-10-21] VITALS: Ht 157.5 cm; Wt 54.5 kg
[~2018-10-21 10:57] MED LIST: CIPRO500 MG PO; FLORAJEN3 CAPS460 MG PO; HYDROCODON-ACE1 EA10 PO
[2018-10-21] MEDS ORDERED: FLOMAX0.4 MG PO (11:50)
[2018-10-21 11:59] VITALS: Ht 157.5 cm; Wt 54.5 kg
--- NOTE | 2018-10-22 08:10 | OP ---
PATIENT NAME: SURY ADAMS MEDICAL RECORD: [id number] :[birth year] LOCATION:D.OPS ADMISSION DATE: SURGEON: DIPESH ROBERTSON MD DATE OF OPERATION: 10/21/2018 SURGEON: Dipesh Robertson MD ANESTHESIA: TIVA by Lexi De La Cruz CRNA DIAGNOSIS: Left ureteral stone, 7 x 10 mm. PROCEDURE: Left ESWL times 4000 shocks, gated with EKG. FINDINGS: Radiodense stone, 7 x 10 mm, which had migrated into the left mid ureter at the L3 to L4 interspace. BLOOD LOSS: None. SPECIMENS: None. CLINICAL HISTORY: This is a 48-year-old male who has had a lot of trouble with large stone which had been lodged in his left ureter. It has resisted attempts by me to remove it using ureteroscopy. Finally, it ended up in the kidney when I was trying to remove it with ureteroscopy and I placed a stent. He now comes to have lithotripsy. He was given Ancef on-call to the OR. DESCRIPTION OF PROCEDURE: The patient was placed on treatment table. The stone was previously seen in the kidney, but we did not see any stones in the kidney on fluoroscopy. We then followed the stent down the ureter and we found the stone at the L3-L4 interspace. The stone was then targeted in 2 planes. We started treatments. At about the 1500 shock point, the PLASTICS FABRICATOR noticed that the patient was developing PVCs on his EKG. We then started gaiting the shocks to the EKG for the rest of the case. His heart rate was about 58-60 throughout. At the end of the procedure, the stone was well fragmented. I will see him back in 2 weeks' time with a KUB. If the stone has gone at that point, then we will remove the stent by pulling on the string. TRANSINT:[id number] Voice Confirmation ID: [id number] DOCUMENT ID: [id number] DIPESH ROBERTSON MD at 0810 CC: [id number] DICTATION DATE: 10/21/18 1349 MODELING INSTRUCTOR: 10/21/18 1416 [facility] 10/21/18 [place] [address]
== END 2018-10-21 14:55 | disposition home or self-care (01) ==
LOC: D.OPS 10:57
PROVIDERS: ATTEND Urology
DX: N20.1 Calculus of ureter (principal); Z01.812 Encounter for preprocedural laboratory examination

== ENCOUNTER → 2018-11-05 10:43 | Outpatient (CLI) | payer MEDICAID ==
[~2018-11-05 10:43] MED LIST changes: +FLOMAX0.4 MG PO
== END | disposition home or self-care (01) ==
LOC: D.RAD 10:43
DX: N20.0 Calculus of kidney (principal)

== ENCOUNTER → 2018-11-05 16:48 | Outpatient (CLI) | payer MEDICAID ==
[2018-11-15 14:09] LABS: CALCULI - CA OXALATE DIHYDRATE 40 % (()); CALCULI - CA OXALATE MONOHYDR 58 % (()); CALCULI - COLOR Tan (())
== END | disposition home or self-care (01) ==
LOC: D.LABREF 16:48
PROVIDERS: Urology
DX: N20.0 Calculus of kidney (principal)

== ENCOUNTER → 2018-11-10 09:02 | Outpatient (CLI) | payer MEDICAID ==
[2018-10-21 11:59] VITALS: BMI 22.0
== END | disposition home or self-care (01) ==
LOC: D.RAD 09:02
PROVIDERS: ATTEND Urology
DX: N20.0 Calculus of kidney (principal)

== ENCOUNTER → 2018-11-19 13:48 | Outpatient (CLI) | payer MEDICAID ==
[2018-10-21 11:59] VITALS: BMI 22.0
== END | disposition home or self-care (01) ==
LOC: D.RAD 13:48
PROVIDERS: ATTEND Urology
DX: N20.0 Calculus of kidney (principal)

== ENCOUNTER 2018-11-23 07:40 | Day surgery (SDC) | payer MEDICAID ==
[~2018-11-23] VITALS: Ht 152.4 cm; Wt 52.2 kg
[2018-11-23 08:56] VITALS: BP 127/76; Ht 152.4 cm; Wt 52.2 kg
--- NOTE | 2018-11-23 12:51 | OP ---
PATIENT NAME: SURY ADAMS MEDICAL RECORD: [id number] :[birth year] LOCATION:D.OPS ADMISSION DATE: SURGEON: DIPESH ROBERTSON MD DATE OF OPERATION: 11/23/2018 SURGEON: Dipesh Robertson MD ANESTHESIA: TIVA by Delonte Scott CRNA. DIAGNOSIS: Retained left ureteral stent. PROCEDURES: Cystoscopy, removal of ureteral stent. FINDINGS: Retained left ureteral stent. SPECIMENS: Left ureteral stent. BLOOD LOSS: None. CLINICAL HISTORY: This is a 48-year-old male, who had a 7 x 10 mm left renal stone. He had a left ureteral stent inserted and he was treated with left ESWL. In the interim, he has passed stone fragments. The latest KUB shows 2 tiny fragments left in the proximal ureter. He does not wish to have the stent anymore and he wishes to have the stent removed. He is not allergic to any medications. He was given Ancef marketing liaison to the OR. DESCRIPTION OF PROCEDURE: The patient was given IV sedation. He was then placed into the lithotomy position. A 21-Bulgarian cystoscope with 30-degree lens was used for visualization. The stent was identified and grasping forceps were used to entirely remove it. The stent was sent to pathology for identification only. I will see the patient in followup on a p.r.n. basis. TRANSINT:[id number] Voice Confirmation ID: [id number] DOCUMENT ID: [id number] DIPESH ROBERTSON MD at 1251 CC: [id number] DICTATION DATE: 11/23/18 1115 MANAGER ENROLLMENT: 11/23/18 1155 [address] [place] [address]
--- NOTE | 2018-11-23 12:51 | NUR ---
IV REMOVED AT 1200. FAMILY HERE TO EDUCATION FACULTY MEMBER PT, INSTRUCTIONS GIVEN NO RX ON CHART. PT DRINKING COFFEE AND WATER
== END 2018-11-23 12:40 | disposition home or self-care (01) ==
LOC: D.OPS 07:40
PROVIDERS: ATTEND Urology
DX: Z46.6 Encounter for fitting and adjustment of urinary device (principal); Z01.812 Encounter for preprocedural laboratory examination